=== PATIENT | male | born 1960 | race Two or more races ===

== ENCOUNTER 2017-02-18 14:45 | Emergency (ER) | payer SELFPAY ==
[~2017-02-18] VITALS: Ht 162.6 cm; Wt 74.4 kg
[2017-02-18 15:26] LABS: Basophils # (auto) 0 uL; Basophils % (auto) 0.5 % (0.0-2.0); CONDITION Y; Eosinophils # (auto) 0.1 uL; Eosinophils % (auto) 1.5 % (0.0-7.0); Hematocrit 44.7 % (41.0-53.0); Hemoglobin 15.3 g/dL (13.5-17.5); Lymphocytes # (auto) 2.4 uL; Lymphocytes % (auto) 31.4 % (10.0-50.0); Mean Corpuscular Hgb Conc. 34.3 g/dL (32.0-36.0); Mean Corpuscular Volume 90.3 fL (80.0-100.0); Mean Platelet Volume 9.4 fL (7.4-10.4); Monocytes # (auto) 0.6 uL; Monocytes % (auto) 7.5 % (0.0-12.0); Neutrophils # (auto) 4.6 uL; Neutrophils % (auto) 59.1 % (37.0-80.0); Platelet Count (auto) 255 10^3/uL (140-450); Red Cell Distribution Width 13.9 % (11.6-16.0); White Blood Cell 7.8 10^3/uL (4.4-10.8)
[2017-02-18 15:51] LABS: Albumin 3.7 g/dL (3.4-5.0); Alkaline Phosphatase 90 U/L (45-117); Anion Gap 8 (5-15); Aspartate Aminotransferase 23 U/L (15-37); BUN/Creatinine Ratio 18.4; Bilirubin, Total 0.4 mg/dL (0.2-1.0); Blood Urea Nitrogen 21 mg/dL (7-18); Calcium 8.6 mg/dL (8.5-10.1); Carbon Dioxide 30 mmol/L (21-32); Chloride 101 mmol/L (98-107); GFR African American 86 mL/min; GFR Non-African American 71 mL/min; Glucose 109 mg/dL (74-106); Potassium 3.6 mmol/L (3.5-5.1); Sodium 139 mmol/L (136-145); Total Protein 7.7 g/dL (6.4-8.2)
[2017-02-18 15:52] VITALS: BP 174/95
== END 2017-02-18 16:29 | disposition home or self-care (01) ==
LOC: ER 14:50
DX: R07.89 Other chest pain (principal); I10 Essential (primary) hypertension; Z88.0 Allergy status to penicillin
CPT/HCPCS: 36415; 71020; 80053; 84484; 85025; 93005

== ENCOUNTER 2021-12-21 01:30 | Emergency (ER) | payer SELFPAY ==
[~2021-12-21] VITALS: Ht 160 cm; Wt 73.9 kg
[2021-12-21] MEDS ORDERED: cloNIDine HCL 0.1 MG TAB PO ONE (01:45)
[2021-12-21 03:23] LABS: Basophils # (auto) 0 10 ^3/uL (0-0.2); Basophils % (auto) 0.4 % (0.0-2.0); Eosinophils # (auto) 0.1 10 ^3/uL (0-0.8); Hematocrit 44.4 % (41.0-53.0); Lymphocytes # (auto) 1.9 10 ^3/uL (0.4-5.4); Lymphocytes % (auto) 29.4 % (10.0-50.0); Mean Corpuscular Hemoglobin 30.7 pg (28.0-32.0); Mean Corpuscular Hgb Conc. 33.8 g/dL (32.0-36.0); Mean Corpuscular Volume 90.8 fL (80.0-100.0); Monocytes # (auto) 0.5 10 ^3/uL (0-1.3); Monocytes % (auto) 7.6 % (0.0-12.0); Neutrophils # (auto) 4.1 10 ^3/uL (1.6-8.6); Neutrophils % (auto) 61.6 % (37.0-80.0); Nucleated Red Blood Cells % 0.1 %; Red Blood Cells 4.89 10^6/uL (4.5-5.90); Red Cell Distribution Width 14.3 % (11.8-14.3); White Blood Cell 6.6 10^3/uL (4.4-10.8)
[2021-12-21 04:10] LABS: BUN/Creatinine Ratio 16.5; Calcium 8.8 mg/dL (8.5-10.1); Potassium 3.8 mmol/L (3.5-5.1)
[2021-12-21 04:13] LABS: Bilirubin, Total 0.6 mg/dL (0.2-1.0); Total Protein 7.8 g/dL (6.4-8.2)
[2021-12-21] MEDS ORDERED: amLODIPine BESYLATE 5 MG TAB PO ONE (05:00)
[2021-12-21 05:25] VITALS: BP 130/90
== END 2021-12-21 05:42 | disposition home or self-care (01) ==
LOC: ER 01:30
DX: I16.0 Hypertensive urgency (principal); Z88.0 Allergy status to penicillin
CPT/HCPCS: 36415; 80053; 84484; 85025